=== PATIENT | female | born 1975 | race African-American/Black ===

== ENCOUNTER 2016-12-26 21:42 | Emergency (ER) | payer SELFPAY ==
[2016-12-27] MEDS ORDERED: ALBUTEROL SULFATE 0.083% NEB 2.5 MG/3 ML AMPUL NEB ONE (00:04)
--- NOTE | 2016-12-27 00:05 | ER Document Report ---
ED Respiratory Problem - General Chief Complaint: Cough Stated Complaint: COUGH Time seen by provider: 00:05 Mode of Arrival: Ambulatory Information source: Patient TRAVEL OUTSIDE OF THE [place] IN LAST 30 DAYS: No - HPI Patient complains to provider of: Cough Onset: Other - 2-3 days Duration: Worse/persistent Quality of pain: Achy Context: Smoker Short of Breath: Mild Cough: Nonproductive Associated symptoms: Chills, Congestion, Cough Similar symptoms previously: No Recently seen / treated by doctor: No Notes: Patient is a 41-year-old female with no past medical history who presents to the emergency room complaining of nonproductive cough, body aches, low-grade temp, symptoms going on for 2-3 days, patient denies any sick contacts but works as a gas welder, she is a smoker as well - Related Data Allergies/Adverse Reactions: No Known Allergies Allergy (Verified 11/08/14 16:36) Past Medical History - General Information source: Patient - Social History Smoking Status: Current Every Day Smoker Chew tobacco use (# tins/day): No Frequency of alcohol use: Occasional Drug Abuse: Marijuana Family History: Reviewed & Not Pertinent, DM, Hypertension, Malignancy Patient has suicidal ideation: No Patient has homicidal ideation: No Pulmonary Medical History: Reports: Hx Bronchitis, Hx COPD, Hx Pneumonia Denies: Hx Asthma Neurological Medical History: Denies: Hx Seizures Renal/ Medical History: Reports: Hx Ectopic , Hx Ovarian Cysts. Denies: Hx Peritoneal Dialysis Past Surgical History: Reports: Hx Cardiac Surgery - as , Hx Gynecologic Surgery - tubal , left fallopian tube removed - Immunizations Immunizations up to date: Yes Hx Diphtheria, Pertussis, Tetanus Vaccination: Yes Review of Systems - Review of Systems Constitutional: See HPI EENT: No symptoms reported Cardiovascular: No symptoms reported Respiratory: See HPI Gastrointestinal: No symptoms reported Genitourinary: No symptoms reported Female Genitourinary: No symptoms reported Musculoskeletal: No symptoms reported Skin: No symptoms reported Hematologic/Lymphatic: No symptoms reported Neurological/Psychological: No symptoms reported -: Yes All other systems reviewed and negative Physical Exam - Vital signs Vitals: Temp Pulse Resp BP Pulse Ox 99.3 F 84 15 134/83 H 96 12/26/16 21:56 12/26/16 21:56 12/26/16 21:56 12/26/16 21:56 12/26/16 21:56 Interpretation: Normal - General General appearance: Appears well, Alert - HEENT Head: Normocephalic, Atraumatic Eyes: Normal Pupils: PERRL - Respiratory Respiratory status: No respiratory distress Chest status: Nontender Breath sounds: Nonproductive cough, Wheezing Chest palpation: Normal - Cardiovascular Rhythm: Regular Heart sounds: Normal auscultation Murmur: No - Abdominal Inspection: Normal Distension: No distension Bowel sounds: Normal Tenderness: Nontender Organomegaly: No organomegaly - Back Back: Normal, Nontender - Extremities General upper extremity: Normal inspection, Nontender, Normal color, Normal ROM , Normal temperature General lower extremity: Normal inspection, Nontender, Normal color, Normal ROM , Normal temperature, Normal weight bearing. No: Sherman's sign - Neurological Neuro grossly intact: Yes Cognition: Normal Orientation: AAOx4 Harrietta Coma Scale Eye Opening: Spontaneous Edilberto Coma Scale Verbal: Oriented Harrietta Coma Scale Motor: Obeys Commands Harrietta Coma Scale Total: 15 Speech: Normal Motor strength normal: LUE, RUE, LLE, RLE Sensory: Normal - Psychological Associated symptoms: Normal affect, Normal mood - Skin Skin Temperature: Warm Skin Moisture: Dry Skin Color: Normal Course - Re-evaluation Re-evalutation: 12/27/16 01:11 Lab and imaging findings discussed with patient at bedside which are significant for positive influenza B test, she was advised to continue with supportive care, quit smoking, was provided with an albuterol inhaler as well as a work note and information for follow-up, advised to return if symptoms worsen, patient acknowledges understanding and agreement with this plan - Vital Signs Vital signs: Temp Pulse Resp BP Pulse Ox 97.6 F 70 16 146/86 H 100 12/27/16 00:50 12/27/16 00:50 12/27/16 00:50 12/27/16 00:50 12/27/16 00:50 - Diagnostic Test Radiology reviewed: Image reviewed, Reports reviewed Discharge - Discharge Clinical Impression: Influenza B Condition: Stable Disposition: HOME, SELF-CARE Instructions: Acetaminophen, Influenza ([facility]), Ibuprofen (General) ([facility]) Additional Instructions: Drink plenty of fluids. Tylenol or Motrin as needed for fever. Follow-up with your primary care provider in one to 2 days. Return to the emergency room immediately if symptoms worsen or any additional concerns. Prescriptions: Benzonatate [Tessalon Perle 100 mg Capsule] 100 mg PO Q8HP PRN #40 cap PRN Reason: Forms: Smoking Cessation Education, Return to Work
[2016-12-27] MEDS ORDERED: BENZONATATE 100 MG CAPSULE PO ONE (00:25)
[2016-12-27 00:52] VITALS: BP 146/86
[2016-12-27] MEDS ORDERED: ALBUTEROL SULFATE HFA (90 MCG/PUFF) 8 GM MDI (1 MDI/ER DISP) IH SCH (02:00)
== END 2016-12-27 00:50 | disposition home or self-care (01) ==
LOC: ER 21:42
DX: J11.1 Influenza due to unidentified influenza virus with other respiratory manifestations (principal); R05 Cough; R68.83 Chills (without fever); M79.1 Myalgia; F17.200 Nicotine dependence, unspecified, uncomplicated
CPT/HCPCS: 94640; 99283; 87804; 71020; J3490

== ENCOUNTER 2019-06-15 11:32 | Emergency (ER) | payer SELFPAY ==
[2019-06-15] MEDS ORDERED: ONDANSETRON 4 MG TAB.RAPDIS PO ONE (11:39)
--- NOTE | 2019-06-15 11:41 | ER Document Report ---
ED Medical Screen (RME) - General Chief Complaint: Abdominal Pain Stated Complaint: ABDOMINAL PAIN Time Seen by Provider: 06/15/19 11:39 Mode of Arrival: Ambulatory Information source: Patient Notes: 43-year-old female presented to ED for complaint of abdominal pain. She states 2 days ago she started with pain on bilateral sides with urgency and frequency and thought she had a UTI but now it is hurting up in her stomach area. She has some nausea but no vomiting or diarrhea. She came to the emergency room to have this checked out. She is alert oriented respirations regular and unlabored speaking in full sentences. 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 I have greeted and performed a rapid initial assessment of this patient. A comprehensive ED assessment and evaluation of the patient, analysis of test results and completion of medical decision making process will be conducted by an additional ED providers. TRAVEL OUTSIDE OF THE [place] IN LAST 30 DAYS: No - Related Data Allergies/Adverse Reactions: No Known Allergies Allergy (Verified 06/15/19 11:32) Past Medical History Pulmonary Medical History: Reports: Hx Bronchitis, Hx COPD, Hx Pneumonia Denies: Hx Asthma Neurological Medical History: Denies: Hx Seizures Renal/ Medical History: Reports: Hx Ectopic , Hx Ovarian Cysts. Denies: Hx Peritoneal Dialysis Past Surgical History: Reports: Hx Cardiac Surgery - as infant, Hx Gynecologic Surgery - tubal , left fallopian tube removed - Immunizations Immunizations up to date: Yes Hx Diphtheria, Pertussis, Tetanus Vaccination: Yes Physical Exam - Vital signs Vitals: Temp Pulse Resp BP Pulse Ox 98.0 F 75 18 143/84 H 97 06/15/19 11:36 06/15/19 11:36 06/15/19 11:36 06/15/19 11:36 06/15/19 11:36 Course - Vital Signs Vital signs: Temp Pulse Resp BP Pulse Ox 98.0 F 75 18 143/84 H 97 06/15/19 11:36 06/15/19 11:36 06/15/19 11:36 06/15/19 11:36 06/15/19 11:36
--- NOTE | 2019-06-15 12:14 | ER Document Report ---
ED General - General Chief Complaint: Abdominal Pain Stated Complaint: ABDOMINAL PAIN Time Seen by Provider: 06/15/19 11:39 Mode of Arrival: Ambulatory Information source: Patient Notes: This 43-year-old female presents to the emergency department with complaints of urinary frequency and urgency for the past few days with some right-sided flank pain. Denies fever reports some nausea denies vomiting diarrhea. Patient reports she is been eating and drinking as normal but with a little bit of decreased appetite. TRAVEL OUTSIDE OF THE [place] IN LAST 30 DAYS: No - HPI Onset: Other Onset/Duration: Persistent Quality of pain: Achy Associated symptoms: Nausea Exacerbated by: Denies Relieved by: Denies Similar symptoms previously: No Recently seen / treated by doctor: No - Related Data Allergies/Adverse Reactions: No Known Allergies Allergy (Verified 06/15/19 11:32) Past Medical History - General Information source: Patient Last Menstrual Period: May 19 - Social History Smoking Status: Current Every Day Smoker Cigarette use (# per day): Yes Frequency of alcohol use: Occasional Drug Abuse: None Occupation: [employer] Lives with: Family Family History: Reviewed & Not Pertinent, DM, Hypertension, Malignancy Patient has suicidal ideation: No Patient has homicidal ideation: No Pulmonary Medical History: Reports: Hx Bronchitis, Hx COPD, Hx Pneumonia Denies: Hx Asthma Neurological Medical History: Denies: Hx Seizures Renal/ Medical History: Reports: Hx Ectopic , Hx Ovarian Cysts. Denies: Hx Peritoneal Dialysis Past Surgical History: Reports: Hx Cardiac Surgery - as , Hx Gynecologic Surgery - tubal , left fallopian tube removed - Immunizations Immunizations up to date: Yes Hx Diphtheria, Pertussis, Tetanus Vaccination: Yes Review of Systems - Review of Systems Notes: Review HPI for review of systems., All other systems negative Physical Exam - Vital signs Vitals: Temp Pulse Resp BP Pulse Ox 98.0 F 75 18 143/84 H 97 06/15/19 11:36 06/15/19 11:36 06/15/19 11:36 06/15/19 11:36 06/15/19 11:36 - Notes Notes: PHYSICAL EXAMINATION: GENERAL: Well-appearing and in no acute distress HEAD: Atraumatic, normocephalic. EYES: Pupils equal round extraocular movements intact, sclera anicteric, conjunctiva are normal. ENT: nares patent, . Moist mucous membranes. NECK: Normal range of motion, supple without lymphadenopathy LUNGS: CTAB and equal. No wheezes rales or rhonchi. HEART: Regular rate and rhythm without murmurs ABDOMEN: Soft, right side tenderness. No guarding, no rebound BACK: Denies CVA tenderness EXTREMITIES: Normal range of motion, no pitting edema. NEUROLOGICAL: Cranial nerves grossly intact. Normal sensory/motor PSYCH: Normal mood, normal affect. SKIN: Warm, Dry, normal turgor, no rashes or lesions noted Course - Re-evaluation Re-evalutation: 06/15/19 12:58 This 43-year-old female presents emergency department for complaints of urinary frequency and urgency for the past 2 days. Labs unremarkable, UA with leukocytes, WBC's. Will be treated for a UTI. Instructed on medications. Reports she felt better after the Pyridium. She verbalized understanding to all information. 06/15/19 12:00 06/15/19 12:00 MCV 92 fl (80-97) 06/15/19 12:00 MCH 31.0 pg (27.0-33.4) 06/15/19 12:00 MCHC 33.6 g/dL (32.0-36.0) 06/15/19 12:00 RDW 13.6 % (11.5-14.0) 06/15/19 12:00 Seg Neutrophils % 51.3 % (42-78) 06/15/19 12:00 Chloride 104 mmol/L (98-107) 06/15/19 12:00 Carbon Dioxide 26 mmol/L (22-30) 06/15/19 12:00 Anion Gap 9 (5-19) 06/15/19 12:00 Est GFR ( Amer) > 60 (>60) 06/15/19 12:00 Glucose 96 mg/dL (75-110) 06/15/19 12:00 Calcium 9.7 mg/dL (8.4-10.2) 06/15/19 12:00 Total Bilirubin 0.5 mg/dL (0.2-1.3) 06/15/19 12:00 AST 18 U/L (14-36) 06/15/19 12:00 Alkaline Phosphatase 57 U/L (38-126) 06/15/19 12:00 Total Protein 7.6 g/dL (6.3-8.2) 06/15/19 12:00 Albumin 4.3 g/dL (3.5-5.0) 06/15/19 12:00 Lipase 41.8 U/L (23-300) 06/15/19 12:00 Serum HCG, Qual NEGATIVE (NEGATIVE) 06/15/19 12:00 Urine Color YELLOW 06/15/19 12:00 Urine Appearance SLIGHTLY-CLOUDY 06/15/19 12:00 Urine pH 5.0 (5.0-9.0) 06/15/19 12:00 Ur Specific [place] 1.011 06/15/19 12:00 Urine Protein 30 mg/dL (NEGATIVE) H 06/15/19 12:00 Urine Glucose (UA) NEGATIVE mg/dL (NEGATIVE) 06/15/19 12:00 Urine Ketones NEGATIVE mg/dL (NEGATIVE) 06/15/19 12:00 Urine Blood SMALL (NEGATIVE) H 06/15/19 12:00 Urine Nitrite NEGATIVE (NEGATIVE) 06/15/19 12:00 Ur Leukocyte Esterase MODERATE (NEGATIVE) H 06/15/19 12:00 Urine WBC (Auto) 88 /HPF 06/15/19 12:00 Urine RBC (Auto) 12 /HPF 06/15/19 12:00 - Vital Signs Vital signs: Temp Pulse Resp BP Pulse Ox 97.3 F 60 17 142/86 H 99 06/15/19 13:06 06/15/19 13:06 06/15/19 13:06 06/15/19 13:06 06/15/19 13:06 - Laboratory Result Diagrams: 06/15/19 12:00 06/15/19 12:00 Laboratory results interpreted by me: 06/15/19 06/15/19 12:00 12:00 Hct 35.9 L Urine Protein 30 H Urine Blood SMALL H Ur Leukocyte Esterase MODERATE H Discharge - Discharge Clinical Impression: UTI (urinary tract infection) Qualifiers: Urinary tract infection type: site unspecified Hematuria presence: with hematuria Qualified Code(s): N39.0 - Urinary tract infection, site not specified Condition: Stable Disposition: HOME, SELF-CARE Instructions: Nitrofurantoin ([facility]), Urinary Anesthetic Agent ([facility]), Urinary Tract Infection ([facility]) Additional Instructions: *You have been evaluated for pain while voiding, UTI *Take medication as prescribed *Push fluids *Follow up with your primary care provider within one week for recheck *Plan urine recheck in one week *Return to ED for worsening condition, changes, needs Monitor your blood pressure. Your blood pressure was elevated today. This may be because you were anxious, in pain or because you need medication. It is important to follow up with your primary care provider for full evaluation. Prescriptions: Nitrofurantoin/Nitrofuran Mac [Macrobid 100 mg Capsule] 100 mg PO BID #20 capsule Phenazopyridine HCl [Pyridium 200 mg Tablet] 200 mg PO TID #15 tablet Forms: Elevated Blood Pressure, Smoking Cessation Education, Return to Work
[2019-06-15 12:25] LABS: APPEARANCE,URINE SLIGHTLY-CLOUDY; BILIRUBIN,URINE NEGATIVE (NEGATIVE); COLOR,URINE YELLOW; GLUCOSE, URINE NEGATIVE (NEGATIVE); KETONES,URINE NEGATIVE (NEGATIVE); LEUKOCYTE ESTERASE,URINE MODERATE (NEGATIVE); NITRITE,URINE NEGATIVE (NEGATIVE); PROTEIN,URINE 30 mg/dL (NEGATIVE); URINE SPECIFIC GRAVITY 1.011; UROBILINOGEN,URINE NEGATIVE mg/dL (<2.0)
[2019-06-15 12:30] LABS: ABSOLUTE BASOPHILS # (AUTO) 0.1 10^3/uL (0.0-0.2); ABSOLUTE EOSINOPHILS # (AUTO) 0.3 10^3/uL (0.0-0.6); ABSOLUTE LYMPHOCYTES (AUTO) 3.2 10^3/uL (0.5-4.7); ABSOLUTE NEUT (AUTO) 4.9 10^3/uL (1.7-8.2); BASOPHILS % (AUTO) 0.9 % (0-2); EOSINOPHILS % (AUTO) 3.5 % (0-6); HEMATOCRIT 35.9 % (36.0-47.0); HEMOGLOBIN 12.1 g/dL (12.0-15.5); LYMPHOCYTES % (AUTO) 33.5 % (13-45); MEAN CORPUSCULAR HGB CONC 33.6 g/dL (32.0-36.0); MEAN CORPUSCULAR VOLUME 92 fl (80-97); MONOCYTES % (AUTO) 10.8 % (3-13); PLATELET COUNT 320 10^3/uL (150-450); RED CELL DISTRIBUTION WIDTH 13.6 % (11.5-14.0); SEGMENTED NEUTROPHILS % (AUTO) 51.3 % (42-78); TOTAL CELLS COUNTED % (AUTO) 100 %; WHITE BLOOD COUNT 9.6 10^3/uL (4.0-10.5)
[2019-06-15 12:44] LABS: ALBUMIN 4.3 g/dL (3.5-5.0); ALKALINE PHOSPHATASE 57 U/L (38-126); ANION GAP 9 (5-19); ASPARTATE AMINO TRANSFERASE 18 U/L (14-36); BILIRUBIN,DIRECT 0.2 mg/dL (0.0-0.4); BILIRUBIN,TOTAL 0.5 mg/dL (0.2-1.3); BLOOD UREA NITROGEN 14 mg/dL (7-20); CALCIUM 9.7 mg/dL (8.4-10.2); CARBON DIOXIDE 26 mmol/L (22-30); CHLORIDE 104 mmol/L (98-107); GLUCOSE 96 mg/dL (75-110); POTASSIUM 4.3 mmol/L (3.6-5.0); TOTAL PROTEIN 7.6 g/dL (6.3-8.2)
[2019-06-15 13:22] VITALS: BP 142/86
== END 2019-06-15 13:22 | disposition home or self-care (01) ==
LOC: ER 11:32
DX: N39.0 Urinary tract infection, site not specified (principal); R10.9 Unspecified abdominal pain; R11.0 Nausea; F17.210 Nicotine dependence, cigarettes, uncomplicated
CPT/HCPCS: 36415; 87086; 83690; 84703; 85025; 80053; 81001; S0119

== ENCOUNTER 2019-09-01 18:23 | Emergency (ER) | payer SELFPAY ==
--- NOTE | 2019-09-01 19:31 | ER Document Report ---
ED Medical Screen (RME) - General Chief Complaint: Blurred Vision Stated Complaint: BLURRED VISION Time Seen by Provider: 09/01/19 19:21 Notes: Patient is a 43-year-old female presents emergency department with a chief complaint of blurred vision. Patient was at work and abruptly had blurred vision. She then had a headache. Patient states that she was not doing anything in particular. Patient does not have any history of migraines. Pat ient states that she does drink 2 beers a day. Patient describes her headache as a throbbing pain. She has some photophobia. Exam: No nystagmus noted. No gaze palsy noted. I have greeted and performed a rapid initial assessment of this patient. A comprehensive ED assessment and evaluation of the patient, analysis of test results and completion of medical decision making process will be conducted by an additional ED providers. TRAVEL OUTSIDE OF THE [place] IN LAST 30 DAYS: No - Related Data Allergies/Adverse Reactions: No Known Allergies Allergy (Verified 09/01/19 19:12) Past Medical History - Social History Frequency of alcohol use: Social Pulmonary Medical History: Reports: Hx Bronchitis, Hx COPD, Hx Pneumonia Denies: Hx Asthma Neurological Medical History: Denies: Hx Seizures Renal/ Medical History: Reports: Hx Ectopic , Hx Ovarian Cysts. Denies: Hx Peritoneal Dialysis Past Surgical History: Reports: Hx Cardiac Surgery - as , Hx Gynecologic Surgery - tubal , left fallopian tube removed - Immunizations Immunizations up to date: Yes Hx Diphtheria, Pertussis, Tetanus Vaccination: Yes Physical Exam - Vital signs Vitals: Temp Pulse Resp BP Pulse Ox 97.9 F 65 18 153/84 H 97 09/01/19 18:27 09/01/19 18:27 09/01/19 18:27 09/01/19 18:27 09/01/19 18:27 Course - Vital Signs Vital signs: Temp Pulse Resp BP Pulse Ox 97.9 F 65 18 153/84 H 97 09/01/19 18:27 09/01/19 18:27 09/01/19 18:27 09/01/19 18:27 09/01/19 18:27
--- NOTE | 2019-09-01 19:55 | RADIOLOGY REPORT (SQ) ---
EXAM DESCRIPTION: CT HEAD WITHOUT COMPLETED DATE/TIME: 09/01/2019 7:40 pm REASON FOR STUDY: blurred vision COMPARISON: None. TECHNIQUE: Axial images acquired through the brain without intravenous contrast. Images reviewed wit h bone, brain and subdural windows. Images stored on PACS. All CT scanners at this facility use dose modulation, iterative reconstruction, and/or weight based d osing when appropriate to reduce radiation dose to as low as reasonably achievable (ALARA). [facility]: Dose Right [facility]: CareDose [facility]: Dose Right [facility]: Teradose 4D [facility]: [employer] RADIATION DOSE: CT Rad equipment meets quality standard of care and radiation dose reduction techniq ues were employed. CTDIvol: 53.2 mGy. DLP: 1044 mGy-cm.. LIMITATIONS: None. FINDINGS: VENTRICLES: Normal size and contour. CEREBRUM: No masses. No hemorrhage. No midline shift. Age appropriate white matter. No evidence for a cute infarction. CEREBELLUM: No masses. No hemorrhage. No alteration of density. No evidence for acute infarction. EXTRA-AXIAL SPACES: No fluid collections. ORBITS AND GLOBE: No intra- or extraconal masses. Normal contour of globe without masses. CALVARIUM: No fracture. PARANASAL SINUSES: No fluid or mucosal thickening. SOFT TISSUES: No mass or hematoma. OTHER: No other significant finding. IMPRESSION: NO ACUTE INTRACRANIAL FINDINGS. EVIDENCE OF ACUTE STROKE: NO. TECHNICAL DOCUMENTATION: JOB ID: [id number] [place]-72 Quality ID # [id number]: Final reports with documentation of one or more dose reduction techniques (e.g., Au tomated exposure control, adjustment of the mA and/or kV according to patient size, use of iterative reconstruction technique) 2010 [employer]- All Rights Reserved Reading location - IP/workstation name: [email or web address]
[2019-09-01 20:15] LABS: ABSOLUTE EOSINOPHILS # (AUTO) 0.3 10^3/uL (0.0-0.6); ABSOLUTE LYMPHOCYTES (AUTO) 3.3 10^3/uL (0.5-4.7); ABSOLUTE MONOCYTES (AUTO) 0.8 10^3/uL (0.1-1.4); BASOPHILS % (AUTO) 0.6 % (0-2); EOSINOPHILS % (AUTO) 3.2 % (0-6); HEMATOCRIT 36.7 % (36.0-47.0); HEMOGLOBIN 12.1 g/dL (12.0-15.5); LYMPHOCYTES % (AUTO) 39.3 % (13-45); MEAN CORPUSCULAR HEMOGLOBIN 31.8 pg (27.0-33.4); MEAN CORPUSCULAR HGB CONC 33.1 g/dL (32.0-36.0); MEAN CORPUSCULAR VOLUME 96 fl (80-97); MONOCYTES % (AUTO) 9.9 % (3-13); PLATELET COUNT 312 10^3/uL (150-450); RED BLOOD COUNT 3.82 10^6/uL (3.72-5.28); TOTAL CELLS COUNTED % (AUTO) 100 %; WHITE BLOOD COUNT 8.5 10^3/uL (4.0-10.5)
[2019-09-01 20:31] LABS: ALBUMIN 4.4 g/dL (3.5-5.0); ALKALINE PHOSPHATASE 57 U/L (38-126); ANION GAP 8 (5-19); ASPARTATE AMINO TRANSFERASE 21 U/L (14-36); BILIRUBIN,TOTAL 0.2 mg/dL (0.2-1.3); BLOOD UREA NITROGEN 16 mg/dL (7-20); CALCIUM 9.6 mg/dL (8.4-10.2); CARBON DIOXIDE 26 mmol/L (22-30); CHLORIDE 106 mmol/L (98-107); GLUCOSE 99 mg/dL (75-110); POTASSIUM 4.1 mmol/L (3.6-5.0); TOTAL PROTEIN 7.8 g/dL (6.3-8.2)
[2019-09-01] MEDS ORDERED: NORMAL SALINE 1000 ML 1,000 ML IV ONE (20:42)
--- NOTE | 2019-09-01 20:43 | ER Document Report ---
ED General - General Chief Complaint: Blurred Vision Stated Complaint: BLURRED VISION Time Seen by Provider: 09/01/19 19:21 Notes: Patient is a 43-year-old female that comes to the emergency department for chief complaint of an episode earlier where she started feeling blurred vision, she states she started feeling flushed, she states that this happened before a brief period and did resolve after she sat down. She did start getting a headache as well. She denies dizziness, chest pain, palpitations, shortness of breath, fever, neck pain. She denies passing out. She states it was in both eyes when she felt it. She states that after she got here she fell asleep, she states when she woke up she felt fine. She denies any current complaints. She states she was standing at work when this happened. She denies this happening in the past. She smokes, denies recreational drugs. PMH of ectopic and cardiac surgery as an infant. She denies any daily medications. TRAVEL OUTSIDE OF THE [place] IN LAST 30 DAYS: No - Related Data Allergies/Adverse Reactions: No Known Allergies Allergy (Verified 09/01/19 19:12) Past Medical History - General Information source: Patient - Social History Smoking Status: Current Every Day Smoker Frequency of alcohol use: Social Lives with: Family Family History: Reviewed & Not Pertinent, DM, Hypertension, Malignancy Patient has suicidal ideation: No Patient has homicidal ideation: No Pulmonary Medical History: Reports: Hx Bronchitis, Hx COPD, Hx Pneumonia Denies: Hx Asthma Neurological Medical History: Denies: Hx Seizures Renal/ Medical History: Reports: Hx Ectopic , Hx Ovarian Cysts. Denies: Hx Peritoneal Dialysis Past Surgical History: Reports: Hx Cardiac Surgery - as infant, Hx Gynecologic Surgery - tubal , left fallopian tube removed - Immunizations Immunizations up to date: Yes Hx Diphtheria, Pertussis, Tetanus Vaccination: Yes Review of Systems - Review of Systems Constitutional: See HPI EENT: See HPI Cardiovascular: See HPI Respiratory: No symptoms reported Gastrointestinal: No symptoms reported Genitourinary: No symptoms reported Female Genitourinary: No symptoms reported Musculoskeletal: No symptoms reported Skin: No symptoms reported Hematologic/Lymphatic: No symptoms reported Neurological/Psychological: See HPI Physical Exam - Vital signs Vitals: Temp Pulse Resp BP Pulse Ox 97.9 F 65 18 153/84 H 97 09/01/19 18:27 09/01/19 18:27 09/01/19 18:27 09/01/19 18:27 09/01/19 18:27 - Notes Notes: GENERAL: Sleeping but easily aroused, then became smiling, laughing, well- appearing. HEAD: Normocephalic, atraumatic. EYES: Pupils equal, round, and reactive to light. Extraocular movements intact. ENT: Oral mucosa moist, tongue midline. Oropharynx unremarkable. Airway patent. Nares patent, no nasal septal hematoma, TM's intact. NECK: Full range of motion. Supple. Trachea midline. LUNGS: Clear to auscultation bilaterally, no wheezes, rales, or rhonchi. No respiratory distress. HEART: Regular rate and rhythm. No murmur ABDOMEN: Soft, non-tender. Non-distended. Bowel sounds present in all 4 quadrants. GENITOURINARY: Deferred EXTREMITIES: Moves all 4 extremities spontaneously. No edema, normal radial and dorsalis pedis pulses bilaterally. No cyanosis. BACK: no cervical, thoracic, lumbar midline tenderness. No saddle anesthesia, n ormal distal neurovascular exam. Moves all extremities in full range of motion. NEUROLOGICAL: Alert and oriented x3. Normal speech. Cranial nerves II through XII grossly intact. PSYCH: Normal affect, normal mood. Very conversational SKIN: Warm, dry, normal turgor. No rashes or lesions noted. Course - Re-evaluation Re-evalutation: Patient is without any current symptoms. I did review CAT scan of the head and this was unremarkable, CBC, chemistry unremarkable as well. Based on patient having symptoms in both eyes, no loss of vision, normal eye exam now, no complaints now, and symptoms being associated with a headache which then resolved along with everything else after patient slept, I have a very low suspicion of acute emergent etiology. No evidence of brain bleed, low suspicion of subarachnoid hemorrhage, very low suspicion of CVA with bilateral symptoms which resolved along with a headache. I discussed with patient, she states she feels great and wants to go home, she was given IV fluids here. I discussed follow-up and return precautions with patient and family, they state understanding and agreement. - Vital Signs Vital signs: Temp Pulse Resp BP Pulse Ox 98.1 F 60 15 152/76 H 99 09/01/19 22:06 09/01/19 22:06 09/01/19 22:06 09/01/19 22:06 09/01/19 22:06 - Laboratory Result Diagrams: 09/01/19 19:53 09/01/19 19:53 Laboratory results interpreted by me: 09/01/19 19:53 Est GFR (MDRD) Non-Af 54 L Discharge - Discharge Clinical Impression: Blurry vision, bilateral Headache Qualifiers: Headache type: unspecified Headache chronicity pattern: acute headache Intractability: not intractable Qualified Code(s): R51 - Headache Condition: Stable Disposition: HOME, SELF-CARE Additional Instructions: Your CAT scan of the head is negative, your general laboratory workup does not show concerning findings. Your symptoms are most suggestive of a developing migraine which has resolved after you slept. Follow up with primary care for additional evaluation and management of this. Return if you worsen including severe headache, passing out, chest pain, or any other concerning or worsening symptoms. Forms: Smoking Cessation Education
[2019-09-01 22:10] VITALS: BP 152/76
== END 2019-09-01 22:10 | disposition home or self-care (01) ==
LOC: ER 18:23
DX: H53.8 Other visual disturbances (principal); R51 Headache; F17.200 Nicotine dependence, unspecified, uncomplicated; J44.9 Chronic obstructive pulmonary disease, unspecified
CPT/HCPCS: 99284; 96360; 36415; 85025; 80053; 70450; J7030

== ENCOUNTER 2019-10-13 16:49 | Emergency (ER) | payer SELFPAY ==
[2019-10-13] MEDS ORDERED: IBUPROFEN 600 MG TABLET PO ONE (17:20)
--- NOTE | 2019-10-13 17:21 | ER Document Report ---
ED Medical Screen (RME) - General Chief Complaint: Arm Pain Stated Complaint: LEFT ARM/HAND PAIN Time Seen by Provider: 10/13/19 17:16 TRAVEL OUTSIDE OF THE [place] IN LAST 30 DAYS: No - HPI Notes: 10/13/19 17:20 Patient is a 43-year-old female who presents complaining of feeling swelling to her left arm and significant pain to the medial elbow area that began 2 days ago. Patient is not aware of any injury or activity that may have caused the pain. Pain does not radiate. No fever or history of IV drug abuse. I have treated and performed a rapid initial assessment of this patient. A comprehensive ED assessment and evaluation of the patient, analysis of test results and completion of medical decision making process will be conducted by additional ED providers. PHYSICAL EXAMINATION: GENERAL: Well-appearing, well-nourished and in no acute distress. A&Ox4. Answers questions appropriately. Left arm: There is significant tenderness noted to even light palpation of the medial elbow/distal medial arm. N/V intact distally. - Related Data Allergies/Adverse Reactions: No Known Allergies Allergy (Verified 10/13/19 17:16) Past Medical History Pulmonary Medical History: Reports: Hx Bronchitis, Hx COPD, Hx Pneumonia Denies: Hx Asthma Neurological Medical History: Denies: Hx Seizures Renal/ Medical History: Reports: Hx Ectopic , Hx Ovarian Cysts. Denies: Hx Peritoneal Dialysis Past Surgical History: Reports: Hx Cardiac Surgery - as infant, Hx Gynecologic Surgery - tubal , left fallopian tube removed - Immunizations Immunizations up to date: Yes Hx Diphtheria, Pertussis, Tetanus Vaccination: Yes Physical Exam - Vital signs Vitals: Temp Pulse Resp BP Pulse Ox 98.0 F 76 17 154/93 H 98 10/13/19 16:55 10/13/19 16:55 10/13/19 16:55 10/13/19 16:55 10/13/19 16:55 Course - Vital Signs Vital signs: Temp Pulse Resp BP Pulse Ox 98.0 F 76 17 154/93 H 98 10/13/19 16:55 10/13/19 16:55 10/13/19 16:55 10/13/19 16:55 10/13/19 16:55
--- NOTE | 2019-10-13 21:48 | RADIOLOGY REPORT (SQ) ---
EXAM DESCRIPTION: XR ELBOW 3 VIEWS COMPLETED DATE/TME: 10/13/2019 20:43 CLINICAL HISTORY: 43 years ,Female L elbow pain COMPARISON: None. TECHNIQUE: LEFT elbow, four view FINDINGS: No acute fractures or dislocations are identified. No osseous destructive lesions. No evidence of joint effusion. IMPRESSION: No acute fractures are identified. If symptoms persist, followup is recommended in 7-10 days.
--- NOTE | 2019-10-13 22:25 | ER Document Report ---
HPI - HPI Time Seen by Provider: 10/13/19 17:16 Pain Level: 3 Notes: Patient is a 43-year-old female who presents complaining of feeling swelling to her left arm and significant pain to the medial elbow area that began 2 days ago. Patient is not aware of any injury or activity that may have caused the pain. Pain does not radiate. No fever or history of IV drug abuse. - REPRODUCTIVE Reproductive: DENIES: : - MUSCULOSKELETAL Musculoskeletal: REPORTS: Extremity pain - left arm/elbow Past Medical History - General Information source: Patient - Social History Smoking Status: Current Every Day Smoker Frequency of alcohol use: Social Drug Abuse: None Family History: Reviewed & Not Pertinent, DM, Hypertension, Malignancy Patient has suicidal ideation: No Patient has homicidal ideation: No Pulmonary Medical History: Reports: Hx Bronchitis, Hx COPD, Hx Pneumonia Denies: Hx Asthma Neurological Medical History: Denies: Hx Seizures Renal/ Medical History: Reports: Hx Ectopic , Hx Ovarian Cysts. Denies: Hx Peritoneal Dialysis Past Surgical History: Reports: Hx Cardiac Surgery - as , Hx Gynecologic Surgery - tubal , left fallopian tube removed - Immunizations Immunizations up to date: Yes Hx Diphtheria, Pertussis, Tetanus Vaccination: Yes Vertical Provider Document - CONSTITUTIONAL Notes: PHYSICAL EXAMINATION: GENERAL: Well-appearing, well-nourished and in no acute distress. HEAD: Atraumatic, normocephalic. EYES: Pupils equal round extraocular movements intact, conjunctiva are normal. ENT: Nares patent NECK: Normal range of motion LUNGS: No respiratory distress Musculoskeletal: Tenderness to palpation to left posterior elbow, no erythema or heat noted. Full range of motion although painful with range of motion. Cap refill less than 3 seconds distally, strong radial pulse. Normal motor and sensation distally. NEUROLOGICAL: Normal speech, normal gait. PSYCH: Normal mood, normal affect. SKIN: Warm, Dry, normal turgor, no rashes or lesions noted. - INFECTION CONTROL TRAVEL OUTSIDE OF THE [place] IN LAST 30 DAYS: No Course - Re-evaluation Re-evalutation: Venous Doppler ultrasound ordered in triage was unremarkable for any DVT. An x- ray was also obtained which is also unremarkable. Patient reports pain significantly decreased after administration of medications here in the emergency department. An [place] wrap will be applied, sling will be applied, patient to follow-up with orthopedics if not improving over the next 3 to 5 days, sooner if worsening to the ER. - Vital Signs Vital signs: Temp Pulse Resp BP Pulse Ox 98.0 F 76 17 154/93 H 98 10/13/19 16:55 10/13/19 16:55 10/13/19 16:55 10/13/19 16:55 10/13/19 16:55 Procedures - Immobilization Left arm Pre-Proc Neuro Vasc Exam: Normal Immobilizer type: [place] wrap, Sling Performed by: PCT Post-Proc Neuro Vasc Exam: Normal Discharge - Discharge Clinical Impression: Left elbow pain Condition: Stable Disposition: HOME, SELF-CARE Additional Instructions: Fortunately the x-ray and ultrasound were both negative. He does not appear to be a blood clot in your arm nor does it appear to be any fracture or dislocation. It is possible that you have a small joint effusion which is a fluid collection that is not infectious. Please keep the [place] wrap on to help with compression, alternate ice and moist heat. Take the medication as prescribed. Use the stronger pain medication that you are sent home with for severe pain. If the pain does not resolve over the next 3 to 5 days follow-up with orthopedics. If the pain worsens significantly, swelling worsen significantly or the arm becomes hot or red please return to the emergency department immediately. Prescriptions: Ibuprofen [Motrin 800 mg Tablet] 800 mg PO Q8H PRN #40 tab PRN Reason:
[2019-10-13] MEDS ORDERED: HYDROCODONE/ACETAMINOPHEN 5-325 MG (6 TAB/ER DISP) PO PRN (22:27)
--- NOTE | 2019-10-13 22:31 | RADIOLOGY REPORT (SQ) ---
US UPPER EXTREMITY VEINS EXAM DATE: 10/13/2019 5:19 PM [employer] HISTORY: Arm pain and swelling. COMPARISON: None. TECHNIQUE: Grayscale, color Doppler, and spectral Doppler images of the left upper extremity were performed. FINDINGS: The internal jugular, subclavian, axillary, brachial, basilic, and cephalic veins are patent and compressible. Normal color Doppler blood flow and augmentation in the aforementioned veins. The distal veins are also patent. IMPRESSION: No evidence of deep venous thrombosis in the left upper extremity.
[2019-10-13 22:51] VITALS: BP 129/63
== END 2019-10-13 22:49 | disposition home or self-care (01) ==
LOC: ER 16:49
DX: M25.522 Pain in left elbow (principal); R22.32 Localized swelling, mass and lump, left upper limb; F17.200 Nicotine dependence, unspecified, uncomplicated
CPT/HCPCS: 93971; 99284